=== PATIENT | male | born 1990 | race African-American/Black ===

== ENCOUNTER 2018-02-26 08:54 | Emergency (ER) | payer SELFPAY ==
[~2018-02-26] VITALS: Ht 185.4 cm; Wt 85.3 kg
--- NOTE | 2018-02-26 10:08 | Diagnostic Imaging Report ---
EXAMINATION: PA and lateral views of the chest. COMPARISON: None CLINICAL HISTORY: Cough, fever, body aches, left-sided chest pain DISCUSSION: Lines/tubes: None. Lungs: The lungs are well inflated and clear. There is no evidence of pneumonia or pulmonary edema. Pleura: There is no pleural effusion or pneumothorax. Heart and mediastinum: Cardiomediastinal silhouette is unremarkable. Pulmonary vasculature is normal. Bones and soft tissues: No acute bony abnormalities. IMPRESSION: No acute cardiopulmonary abnormalities. Signed by: Dr. Kota Mayo M.D. on 02/26/2018 10:05 AM
[2018-02-26 10:26] VITALS: BP 140/85
[2018-02-26] MEDS ORDERED: IBUPROFEN 600 MG TAB PO STA (10:31)
== END 2018-02-26 10:41 | disposition home or self-care (01) ==
LOC: ER 08:54
DX: R05 Cough (principal); J02.9 Acute pharyngitis, unspecified
CPT/HCPCS: 71046; 87400; 99283